=== PATIENT | female | born 1980 | race Caucasian/White ===

== ENCOUNTER 2019-08-04 15:56 | Outpatient (CLI) | payer OTHER ==
--- NOTE | 2019-08-05 08:46 | MMO ---
Bilateral MAMMO Bilat Screen [facility]. CLINICAL HISTORY: Patient is 39 years old and is seen for screening. The patient has no family history of breast cancer. The patient has a history of Skin cancer. VIEWS: The views performed were: bilateral craniocaudal with tomosynthesis; bilateral mediolateral oblique with tomosynthesis; and bilateral exaggerated craniocaudal. MAMMOGRAM FINDINGS: There are scattered fibroglandular densities. There are two equal density, oval masses with obscured margins seen in the outer region of the right breast. In the left breast, there are no suspicious masses, calcifications or areas of architectural distortion. IMPRESSION: MASSES IN THE RIGHT BREAST REQUIRE ADDITIONAL EVALUATION. AN ULTRASOUND EXAM IS RECOMMENDED. THE RESULTS OF THIS EXAM WERE SENT TO THE PATIENT. ACR BI-RADS Category 0 - Incomplete: Need additional imaging evaluation. [facility] will notify the patient of the need for additional imaging services. MAMMOGRAPHY NOTE: 1. A negative mammogram report should not delay a biopsy if a dominant of clinically suspicious mass is present. 2. Approximately 10% to 15% of breast cancers are not detected by mammography. 3. Adenosis and dense breasts may obscure an underlying neoplasm. Reported by: ALBERTO BOWEN MD Electonically Signed: [id number]
== END 2019-08-04 15:57 | disposition home or self-care (01) ==
LOC: BICMAMMO 15:56
PROVIDERS: ATTEND Family Medicine
DX: Z12.31 Encounter for screening mammogram for malignant neoplasm of breast (principal); N63.10 Unspecified lump in the right breast, unspecified quadrant; Z85.828 Personal history of other malignant neoplasm of skin
CPT/HCPCS: 77063; 77067

== ENCOUNTER 2019-08-12 08:44 | Outpatient (CLI) | payer OTHER ==
--- NOTE | 2019-08-12 09:58 | ULT ---
LIMITED RIGHT BREAST ULTRASOUND: Date: 08/12/19 PROVIDED CLINICAL HISTORY: Abnormal screening mammogram. FINDINGS: Limited sonographic interrogation of the right breast was performed in the region of mammographic con cern. Two oval, circumscribed, hypoechoic masses with smooth margins and no posterior shadowing are d emonstrated at the 9 o'clock position of the right breast. These are not completely anechoic, which m ay be on the basis of debris-filled cysts. IMPRESSION: BI-RADS Category 3 - Probably benign findings. 6 month follow-up right breast ultrasound and diagnost ic right mammogram are recommended. The facility will notify patient of need for additional imaging services. POS: OFF
== END 2019-08-12 08:45 | disposition home or self-care (01) ==
LOC: BICULT 08:44
PROVIDERS: ATTEND Family Medicine
DX: N63.13 Unspecified lump in the right breast, lower outer quadrant (principal)

== ENCOUNTER 2020-03-21 13:46 | Outpatient (CLI) | payer OTHER ==
--- NOTE | 2020-03-21 14:30 | MMO ---
Right Breast MAMMO Unilat Diag [facility] RT+CORY. CLINICAL HISTORY: Patient is 40 years old and is seen for diagnostic exam. The patient has no family history of breast cancer. The patient has a history of Skin cancer. VIEWS: The views performed were: right craniocaudal with tomosynthesis; right mediolateral oblique with tomosynthesis; and right mediolateral with tomosynthesis. FILMS COMPARED: The present examination has been compared to prior imaging studies performed at [facility] on 08/04/2019, 08/12/2019 and 03/21/2020. This study has been interpreted with the assistance of computer-aided detection. MAMMOGRAM FINDINGS: There are scattered fibroglandular densities. The previously noted 2 nodules in the right outer breast are less well seen on todays's mammogram but remain stable on US. IMPRESSION: FINDING IN THE RIGHT BREAST IS PROBABLY BENIGN. FOLLOW-UP IN 6 MONTHS IS RECOMMENDED. THE RESULTS OF THIS EXAM WERE SENT TO THE PATIENT. ACR BI-RADS Category 3 - Probably benign finding - short interval follow-up suggested. [facility] will notify the patient of the need for additional imaging services. MAMMOGRAPHY NOTE: 1. A negative mammogram report should not delay a biopsy if a dominant of clinically suspicious mass is present. 2. Approximately 10% to 15% of breast cancers are not detected by mammography. 3. Adenosis and dense breasts may obscure an underlying neoplasm. Reported by: JIAN JORDAN MD Electonically Signed: [id number]
--- NOTE | 2020-03-21 14:51 | ULT ---
LIMITED RIGHT BREAST ULTRASOUND: 03/21/20 HISTORY: Right breast masses. Follow-up. COMPARISON: Ultrasound of 08/12/19. CORRELATION: Mammogram from today. FINDINGS: Sonographic evaluation at the 9 o'clock position of the right breast was performed. The two oval well circumscribed hyperechoic masses with smooth margins and no posterior shadowing are again seen stabl e in size and appearance measuring up to 5-6 mm. These likely represent debris filled cysts. IMPRESSION: BIRADS 3: Probably Benign Finding Initial Short-Interval Follow-Up Suggested Initial short-term follow up (usually 6-month) examination. Six month follow-up right breast ultraso und is recommended.
== END 2020-03-21 13:47 | disposition home or self-care (01) ==
LOC: BICMAMMO 13:46
PROVIDERS: ATTEND Family Medicine
DX: N63.10 Unspecified lump in the right breast, unspecified quadrant (principal)
CPT/HCPCS: G0279

== ENCOUNTER 2020-09-11 14:50 | Outpatient (CLI) | payer OTHER ==
--- NOTE | 2020-09-11 15:20 | MMO ---
Bilateral MAMMO Bilat Diag [facility]. CLINICAL HISTORY: Patient is 40 years old and is seen for diagnostic exam. The patient has no family history of breast cancer. The patient has a history of Skin cancer. VIEWS: The views performed were: bilateral craniocaudal with tomosynthesis; bilateral mediolateral oblique with tomosynthesis; and bilateral mediolateral with tomosynthesis. FILMS COMPARED: The present examination has been compared to prior imaging studies performed at [facility] on 08/04/2019, 08/12/2019 and 03/21/2020. This study has been interpreted with the assistance of computer-aided detection. MAMMOGRAM FINDINGS: There are scattered fibroglandular densities. Finding 1: The previously described masses in the outer right breast are much smaller in size, compatible with a benign process. Finding 2: There are stable benign appearing calcifications seen in the right breast. There are no suspicious masses, suspicious calcifications, or new areas of architectural distortion. IMPRESSION: THERE IS NO MAMMOGRAPHIC EVIDENCE OF MALIGNANCY. A ROUTINE FOLLOW-UP MAMMOGRAM IN 1 YEAR IS RECOMMENDED. THE RESULTS OF THIS EXAM WERE SENT TO THE PATIENT. ACR BI-RADS Category 2 - Benign finding MAMMOGRAPHY NOTE: 1. A negative mammogram report should not delay a biopsy if a dominant of clinically suspicious mass is present. 2. Approximately 10% to 15% of breast cancers are not detected by mammography. 3. Adenosis and dense breasts may obscure an underlying neoplasm. Reported by: ALBERTO BOWEN MD Electonically Signed: [id number]
== END 2020-09-11 14:51 | disposition home or self-care (01) ==
LOC: BICMAMMO 14:50
PROVIDERS: ATTEND Family Medicine
DX: R92.8 Other abnormal and inconclusive findings on diagnostic imaging of breast (principal)
CPT/HCPCS: 77066; G0279

== ENCOUNTER 2021-09-26 11:39 | Outpatient (CLI) | payer BC | END 2021-09-26 11:40 | disposition home or self-care (01) | LOC: BICMAMMO 11:39 | PROVIDERS: ATTEND Family Medicine | DX: Z12.31 Encounter for screening mammogram for malignant neoplasm of breast (principal); Z85.828 Personal history of other malignant neoplasm of skin | CPT/HCPCS: 77063; 77067 ==